=== PATIENT | male | born 1955 | race Caucasian/White ===

== ENCOUNTER 2017-08-30 17:18 | Observation (INO) | payer OTHER ==
[2017-08-30 18:36] LABS: ALT 158 U/L (21-72); AST 231 U/L (17-59); Albumin 3.1 g/dL (3.5-5.0); Alkaline Phosphatase 154 U/L (38-126); Anion Gap 8 mmol/L; Blood Urea Nitrogen 13 mg/dL (9-20); Calcium 8.5 mg/dL (8.4-10.2); Carbon Dioxide 25 mmol/L (22-30); Chloride 107 mmol/L (98-107); Glucose 108 mg/dL (74-99); Magnesium 1.6 mg/dL (1.6-2.3); Potassium 4.1 mmol/L (3.5-5.1); Sodium 140 mmol/L (137-145); Total Bilirubin 1.6 mg/dL (0.2-1.3); Total Protein 6.7 g/dL (6.3-8.2)
[2017-08-30 18:44] LABS: Basophils % (A) 1 %; Eosinophils # (A) 0.1 k/uL (0-0.7); Eosinophils % (A) 3 %; HCT 36.6 % (39.0-53.0); HGB 11.9 gm/dL (13.0-17.5); Lymphocytes # (A) 1.1 k/uL (1.0-4.8); Lymphocytes % (A) 31 %; MCH 28.5 pg (25.0-35.0); MCHC 32.4 g/dL (31.0-37.0); Mean Platelet Volume 9.4; Monocytes # (A) 0.2 k/uL (0-1.0); Monocytes % (A) 7 %; Neutrophils % (A) 57 %; RBC 4.16 m/uL (4.30-5.90); RDW 15.8 % (11.5-15.5); WBC 3.5 k/uL (3.8-10.6)
--- NOTE | 2017-08-30 18:44 | ED ---
Chest Pain HPI - General Chief Complaint: Chest Pain Stated Complaint: Chest pain Time Seen by Provider: 08/30/17 18:25 Source: patient, RN notes reviewed Mode of arrival: ambulatory - History of Present Illness Initial Comments: This is a 61-year-old male with a history of hypertension who presents with complaints of elevated blood pressure numbers especially diastolic also complains of chest pain. He states been having chest pain on and off for the past one half days. Currently does not have any pain. Nonspecific in nature. MD Complaint: chest pain, other - Related Data Home Medications Medication Instructions Recorded Confirmed ALPRAZolam [Xanax] 0.25 mg PO DAILY PRN 08/30/17 08/30/17 Aspirin [Adult Low Dose Aspirin EC] 81 mg PO DAILY PRN 08/30/17 08/30/17 Buprenorphine HCl/Naloxone HCl 0.1 film SL Q48H PRN 08/30/17 08/30/17 [Suboxone 8 mg-2 mg Sl Film] Lisinopril [Zestril] 10 mg PO DAILY 08/30/17 08/30/17 cloNIDine HCL [Catapres] 0.2 mg PO TID 08/30/17 08/30/17 Allergies Allergy/AdvReac Type Severity Reaction Status Date / Time No Known Allergies Allergy Verified 08/30/17 18:56 Review of Systems ROS Statement: Those systems with pertinent positive or pertinent negative responses have been documented in the HPI. ROS Other: All systems not noted in ROS Statement are negative. Past Medical History Past Medical History: Hypertension Additional Past Medical History / Comment(s): irreg heart beat hep c History of Any Multi-Drug Resistant Organisms: None Reported Past Surgical History: Hernia Repair Past Psychological History: No Psychological Hx Reported Smoking Status: Current every day smoker Past Alcohol Use History: Daily Past Drug Use History: None Reported General Exam - General Exam Comments Initial Comments: This a well-developed well-nourished awake alert oriented 3 male General appearance: alert, anxious Head exam: Present: atraumatic, normocephalic, normal inspection Eye exam: Present: normal appearance, PERRL, EOMI. Absent: scleral icterus, conjunctival injection, periorbital swelling ENT exam: Present: normal exam, mucous membranes moist Neck exam: Present: normal inspection. Absent: tenderness, meningismus, lymphadenopathy Respiratory exam: Present: normal lung sounds bilaterally. Absent: respiratory distress, wheezes, rales, rhonchi, stridor Cardiovascular Exam: Present: regular rate, normal rhythm, normal heart sounds. Absent: systolic murmur, diastolic murmur, rubs, gallop, clicks GI/Abdominal exam: Present: soft, normal bowel sounds. Absent: distended, tenderness, guarding, rebound, rigid Extremities exam: Present: normal inspection, full ROM, normal capillary refill. Absent: tenderness, pedal edema, joint swelling, calf tenderness Back exam: Present: normal inspection Neurological exam: Present: alert, oriented X3, CN II-XII intact Psychiatric exam: Present: normal affect, normal mood Skin exam: Present: warm, dry, intact, normal color. Absent: rash Course Vital Signs 08/30/17 08/30/17 08/30/17 17:30 18:43 19:19 Temperature 98.7 F Pulse Rate 69 79 60 Respiratory 18 16 18 Rate Blood Pressure 135/81 158/77 147/83 O2 Sat by Pulse 98 96 99 Oximetry Chest Pain MDM - MDM I did review the imaging no acute findings. Patient has no pain at this time he will be admitted I did discuss case with him and with Dr. Gonzalez. Disposition Clinical Impression: Chest pain, Hypertension Disposition: ADMITTED IP TO THIS HOSP Condition: Stable Referrals: Gabriel Thibodeaux MD [Primary Care Provider] - 1-2 days
[2017-08-30 18:46] LABS: Platelet Count 80 k/uL (150-450)
[2017-08-30 18:47] LABS: Creatine Kinase 63 U/L (55-170)
[2017-08-30 18:51] LABS: INR 1.5 (<1.2); Partial Thromboplastin Time 28.6 sec (22.0-30.0); Prothrombin Time 13.9 sec (9.0-12.0)
[2017-08-30 18:59] LABS: Troponin I <0.012 ng/mL (0.000-0.034)
[2017-08-30 19:01] LABS: Creatine Kinase MB 2.5 ng/mL (0.0-2.4)
--- NOTE | 2017-08-30 19:34 | XR ---
EXAMINATION TYPE: XR chest 2V DATE OF EXAM: 08/30/2017 COMPARISON: NONE HISTORY: Chest pain TECHNIQUE: Frontal and lateral views of the chest are obtained. FINDINGS: Heart and mediastinum are normal. Lungs are clear. Diaphragm is normal. Bony thorax is int act. There are chest leads. IMPRESSION: Normal chest
[2017-08-30] MEDS ORDERED: HEPARIN SODIUM,PORCINE 5,000 UNIT/ML 1 ML VIAL IV ONE (20:33)
[2017-08-30] MEDS ORDERED: NITROGLYCERIN SL TABS 0.4 MG TAB SUBLINGUAL PRN (20:33)
[2017-08-30] MEDS ORDERED: BUPRENORPHINE HCL SL PRN (20:35)
[2017-08-30] MEDS ORDERED: NALOXONE HCL SL PRN (20:35)
[2017-08-30] MEDS ORDERED: ALPRAZolam 0.25 MG TAB PO PRN (20:35)
[2017-08-30] MEDS ORDERED: HEPARIN SOD,PORK IN 0.45% NACL 25,000 UNIT in 0.45% NACL 1 500ML.BAG IV SCH (20:45)
[2017-08-30] MEDS ORDERED: SODIUM CHLORIDE 0.9% 1,000 ML IV SCH (20:45)
--- NOTE | 2017-08-30 22:39 | HP ---
HISTORY AND PHYSICAL DATE OF ADMISSION: 08/30/2017 PRESENTING COMPLAINT: Chest pain. HISTORY OF PRESENTING COMPLAINT: Pleasant 61-year-old patient off Dr. Thibodeaux. Chronic stable medical conditions include hypertension, hepatitis C that was treated over 15 years ago, treated with interferon and patient levels have been undetectable. The patient then was taking methadone and subsequently switched over to Suboxone and is taking 1 mg every other day. The patient noticed for a day he has been having episodes of chest pounding in the middle of the chest going over to the precordial on the left side. Also he noticed some nausea today and the pain would go down to the left arm. The patient also felt a bit dizzy. Because of the combination of the symptoms, concerned about the heart, the patient decided to present to the ER. The patient had a stress test over 15 years ago. No other cardiac history. The patient is cutting back on the smoking. REVIEW OF SYSTEMS: CONSTITUTIONAL: None. HEENT none. RESPIRATORY: Minimal short of breath. CARDIOVASCULAR: As above. GASTROINTESTINAL: None. GENITOURINARY: None. MUSCULOSKELETAL: None. DERMATOLOGICAL: None. HEMATOLOGIC: None. LYMPHATIC: None. PSYCHIATRY: None. NEUROLOGICAL: None. PAST HISTORY: Hypertension, irregular heartbeat, hepatitis C, treated. SURGICAL HISTORY: Hernia repair. SOCIAL HISTORY: The patient has smoking for several years, now down to 1 pack a week. The patient did drink alcohol, used to work as an environmental lawyer. Lives with his younger sister. FAMILY HISTORY: Reviewed, noncontributory to presentation. HOME MEDICATIONS: 1. Xanax 0.25 p.o. daily p.r.n. 2. Catapres 0.2 p.o. t.i.d. 3. Zestril 10 mg p.o. daily. 4. Suboxone 8/2.1 mg p.o. q.48 hours p.r.n. 5. Aspirin 81 mg p.o. daily p.r.n. ALLERGIES: None. EXAMINATION: Temperature 98.7, pulse 69, respiration 18, blood pressure 142/78, pulse ox 98% on 2 L and 98% on room air. GENERAL APPEARANCE: Average built, sitting up, comfortable. EYES: Pupil equal. Conjunctivae normal. HEENT: External appearance of nose, ears normal. Oral cavity normal. NECK: JVD not raised. Mass not palpable. RESPIRATORY: Effort normal. LUNGS: Slightly decreased breath sounds. CARDIOVASCULAR: First and second sounds normal. No edema. ABDOMEN: Soft, nontender. Liver and spleen not palpable. LYMPHATIC: No lymph node palpable in neck or axillae. PSYCHIATRY: Alert and oriented x3. Mood and affect normal. NEUROLOGICAL: Pupils appear grossly intact. Power and sensation grossly intact. INVESTIGATIONS: White count 3.5, hemoglobin 11.9, platelets 80. Potassium 4.1. AST 231, ALT 158. Troponins less than 0.012. EKG shows looks like a wandering atrial pacemaker with some PACs. ASSESSMENT: 1. Anterior chest wall in a patient whose risk factors includes age and smoking. 2. Chronic nicotine dependence. Patient is an active cigarette smoker. 3. Pancytopenia; chronic, cause unknown. Will need further workup as an outpatient. Will send off basic lab work for right now. 4. Hepatitis with a prior history of hepatitis C that was treated and stated that hepatitis C was undetectable. PLAN: Patient's home medications are resumed. Patient is put on aspirin, IV heparin. Cardiology was consulted. The patient will need a stress test. Will also give patient a nicotine patch. MMODL / IJN: [id number] /
[2017-08-30] MEDS: cloNIDine HCL 0.2 MG TAB PO SCH (22:48)
[2017-08-30] MEDS: NICOTINE 7MG/24HR PATCH TRANSDERM SCH (22:49)
[2017-08-31 01:09] LABS: Creatine Kinase 43 U/L (55-170)
[2017-08-31 01:23] LABS: Creatine Kinase MB 1.9 ng/mL (0.0-2.4); Troponin I <0.012 ng/mL (0.000-0.034)
[2017-08-31 03:55] LABS: Cholesterol 154 mg/dL (<200); HDL Cholesterol 52 mg/dL (40-60); LDL Cholesterol,Calculated 91 mg/dL (0-99); Triglycerides 54 mg/dL (<150)
[2017-08-31 06:24] LABS: Creatine Kinase 41 U/L (55-170)
[2017-08-31 06:37] LABS: Creatine Kinase MB 1.8 ng/mL (0.0-2.4); Troponin I <0.012 ng/mL (0.000-0.034)
[2017-08-31] MEDS: cloNIDine HCL 0.2 MG TAB PO SCH (08:53)
[2017-08-31] MEDS ORDERED: LISINOPRIL 10 MG TAB PO SCH (09:00)
[2017-08-31] MEDS ORDERED: ASPIRIN 325 MG TAB PO SCH (09:00)
[2017-08-31] MEDS: NICOTINE 7MG/24HR PATCH TRANSDERM SCH (09:40)
--- NOTE | 2017-08-31 11:44 | ECHOF ---
Referral Reason:cp MEASUREMENTS -------- HEIGHT: 170.2 cm WEIGHT: 80.3 kg BP: 134/68 RVIDd: 3.6 cm (< 3.3) IVSd: 0.8 cm (0.6 - 1.1) LVIDd: 4.6 cm (3.9 - 5.3) LVPWd: 0.9 cm (0.6 - 1.1) IVSs: 1.2 cm LVIDs: 3.3 cm LVPWs: 1.2 cm LAESV Index (A-L): 29.78 ml/m Ao Diam: 3.3 cm (2.0 - 3.7) AV Cusp: 1.7 cm (1.5 - 2.6) LA Diam: 3.0 cm (2.7 - 3.8) MV E Jean Claude: 1.09 m/s MV DecT: 248 ms MV A Jean Claude: 0.70 m/s MV E/A Ratio: 1.57 RAP: 5.00 mmHg RVSP: 19.63 mmHg MV EF SLOPE: 106.05 mm/s (70 - 150) MV EXCURSION: 1.67 cm (> 18.000) FINDINGS -------- Sinus rhythm with extra systolic beats. This was a technically good study. The left ventricular size is normal. Left ventricular wall thickness is normal. Overall left vent ricular systolic function is normal with, an EF between 55 - 60 %. The right ventricle is mildly enlarged. LA is midly dilated 29-33ml/m2. The right atrium is normal in size. The aortic valve is trileaflet, and appears structurally normal. No aortic stenosis or regurgitation. Mild mitral annular calcification present. There is trace to mild mitral regurgitation. Trace tricuspid regurgitation present. Right ventricular systolic pressure is normal at < 35 mmHg. There is no evidence of pulmonary hypertension. The pulmonic valve was not well visualized. The aortic root size is normal. IVC Not well visulized. There is no pericardial effusion. CONCLUSIONS -------- 1. Sinus rhythm with extra systolic beats. 2. This was a technically good study. 3. The left ventricular size is normal. 4. Left ventricular wall thickness is normal. 5. Overall left ventricular systolic function is normal with, an EF between 55 - 60 %. 6. The right ventricle is mildly enlarged. 7. LA is midly dilated 29-33ml/m2. 8. The aortic valve is trileaflet, and appears structurally normal. No aortic stenosis or regurgitati on. 9. Mild mitral annular calcification present. 10. There is trace to mild mitral regurgitation. 11. Trace tricuspid regurgitation present. 12. Right ventricular systolic pressure is normal at < 35 mmHg. 13. There is no evidence of pulmonary hypertension. 14. The pulmonic valve was not well visualized. 15. The aortic root size is normal. 16. IVC Not well visulized. 17. There is no pericardial effusion. FILM INSPECTOR: Sourav Guan RDCS
[2017-08-31 12:01] VITALS: TEMP 97.6
--- NOTE | 2017-08-31 12:15 | P.CRDCN ---
History of Present Illness Consult date: 08/31/17 Consult reason: chest pain History of present illness: Mr. Sanchez is a pleasant 61-year old male past medical history significant for cocaine abuse, hypertension, hepatitis C, cirrhosis, irregular heart beat diagnosed per Dr. Thibodeaux and chronic tobacco use. He denies history of coronary artery disease and has never seen a business support manager for any reason. We have been asked to see him in consultation for complaints of chest pain and shortness of breath. He states for the previous week he has noticed increasing shortness of breath with minimal activity as well as significant swelling in his legs. He states when he pressed down on his legs the indentation from his finger stayed there for a few seconds. He has medications at home from his mother who recently and he took a few doses of lasix and aldactone. He noticed improvement of his swelling and mild improvement in his breathing. However starting 2 days ago he was having tightness in his chest that radiated into his shoulder and left arm. This was not related to activity. He did notice worsening pain in the left arm when he was folding towels yesterday. At the time of my exam he is chest pain free but the pain is reproducible on palpation under the left breast and denies shortness of breath. He also states he has chronic nausea that is not worse lately, but consistently there. His stools have been dark as well. He denies bright red blood or coffee ground appearance but the color is black. Urine noted in the urinal at the bedside is dark kaitlin in color. EKG on arrival reveals sinus mechanism with frequent PAC's with no acute ST or T -wave abnormalities. Chest xray is negative for an acute cardiopulmonary process. Laboratory data reviewed, WBC 3.5, hemoglobin 11.9, platelets 80, INR 1.5, potassium 4.1, magnesium 1.6, creatinine 0.69, AST 231, PLT 158, total bilirubin 1.6, alkaline phosphate 154, cardiac enzymes negative 3, proBNP 281, LDL 91. Current cardiac medications include Catapres 0.2 mg 3 times a day, lisinopril 10 mg daily and aspirin 81 mg daily. He also takes Suboxone since stopping cocaine. Review of Systems At this time my exam: CONSTITUTIONAL: Denies fever. Denies chills. EYES: Denies blurred vision. Denies vision changes. Denies eye pain. EARS, NOSE, MOUTH & THROAT: Denies headache. Denies sore throat. Denies ear pain. CARDIOVASCULAR: Denies chest pain. Denies shortness of breath. Denies orthopnea. Denies PND. Denies palpitations. RESPIRATORY: Denies cough. GASTROINTESTINAL: Denies abdominal pain. Denies diarrhea. Denies constipation. Chronic nausea. Denies vomiting. MUSCULOSKELETAL: Denies myalgias. INTEGUMENTARY: Denies pruitis. Denies rash. NEUROLOGIC: Denies numbness. Denies tingling. Denies weakness. PSYCHIATRIC: Denies anxiety. Denies depression. ENDOCRINE: Denies fatigue. Denies weight change. Denies polydipsia. Denies polyurina. GENITOURINARY: Denies burning, hematuria or urgency with micturation. HEMATOLOGIC: Denies history of anemia. Denies bleeding. Past Medical History Past Medical History: Hypertension Additional Past Medical History / Comment(s): irreg heart beat hep c History of Any Multi-Drug Resistant Organisms: None Reported Past Surgical History: Hernia Repair Past Psychological History: No Psychological Hx Reported Smoking Status: Current every day smoker Past Alcohol Use History: Daily Past Drug Use History: None Reported Medications and Allergies Home Medications Medication Instructions Recorded Confirmed Type ALPRAZolam [Xanax] 0.25 mg PO DAILY PRN 08/30/17 08/30/17 History Aspirin [Adult Low Dose Aspirin EC] 81 mg PO DAILY PRN 08/30/17 08/30/17 History Buprenorphine HCl/Naloxone HCl 0.1 film SL Q48H PRN 08/30/17 08/30/17 History [Suboxone 8 mg-2 mg Sl Film] Lisinopril [Zestril] 10 mg PO DAILY 08/30/17 08/30/17 History cloNIDine HCL [Catapres] 0.2 mg PO TID 08/30/17 08/30/17 History Allergies Allergy/AdvReac Type Severity Reaction Status Date / Time No Known Allergies Allergy Verified 08/30/17 18:56 Physical Exam Vitals: Vital Signs Temp Pulse Resp BP Pulse Ox 08/31/17 06:31 56 L 18 133/63 97 08/31/17 05:20 54 L 18 137/67 99 08/31/17 04:45 58 L 18 138/67 98 08/31/17 04:00 55 L 18 146/60 98 08/31/17 02:44 51 L 18 149/73 99 08/31/17 01:42 52 L 18 142/70 99 08/30/17 23:37 98.2 F 53 L 18 143/71 98 08/30/17 21:20 64 18 142/78 98 08/30/17 19:19 60 18 147/83 99 08/30/17 18:43 79 16 158/77 96 08/30/17 17:30 98.7 F 69 18 135/81 98 Intake and Output 08/30/17 08/31/17 08/31/17 22:59 06:59 14:59 Intake Total 129.363 Balance 129.363 Intake: Intake, IV Titration 129.363 Amount Heparin Sod,Pork in 0.45% 129.363 NaCl 25,000 unit In 0.45 % NaCl 1 500ml.bag @ 12 UNITS/KG/HR 19.26 mls/hr IV .Q24H [facility] Rx#: [id number] Other: Weight 80.286 kg Blood pressure 133/63 heart rate 56 afebrile maintaining oxygen saturation on 2 L nasal cannula GENERAL: This is a 61-year-old male in no apparent distress at the time of my examination. HEENT: Head is atraumatic, normocephalic. Pupils are equal, round. Sclerae anicteric. Conjunctivae are clear. Mucous membranes of the mouth are moist. Neck is supple. There is no jugular venous distention. No carotid bruit is heard. LUNGS: Clear to auscultation no wheezes, rales or rhonchi. No chest wall tenderness is noted on palpation or with deep breathing. Diminished bilaterally. HEART: Regular rate and rhythm without murmurs, rubs or gallops. S1 and S2 heard. ABDOMEN: Soft, nontender. Bowel sounds are heard. No organomegaly noted. EXTREMITIES: No evidence of peripheral edema and no calf tenderness noted. VASCULAR: Radial and dorsalis pedis pulses palpated, no evidence of clubbing. NEUROLOGIC: Patient is awake, alert and oriented x3. Results 08/30/17 18:07 08/30/17 18:07 Cardiac Enzymes 08/30/17 08/30/17 08/31/17 Range/Units 18:07 18:07 00:22 AST 231 H (17-59) U/L CK-MB (CK-2) 2.5 H* 1.9 (0.0-2.4) ng/mL Troponin I <0.012 <0.012 (0.000-0.034) ng/mL 08/31/17 Range/Units 05:41 AST (17-59) U/L CK-MB (CK-2) 1.8 (0.0-2.4) ng/mL Troponin I <0.012 (0.000-0.034) ng/mL Coagulation 08/30/17 08/31/17 Range/Units 18:07 03:13 PT 13.9 H (9.0-12.0) sec APTT 28.6 127.9 H* (22.0-30.0) sec Lipids 08/31/17 Range/Units 03:13 Triglycerides 54 (<150) mg/dL Cholesterol 154 (<200) mg/dL HDL Cholesterol 52 (40-60) mg/dL CBC 08/30/17 Range/Units 18:07 WBC 3.5 L (3.8-10.6) k/uL RBC 4.16 L (4.30-5.90) m/uL Hgb 11.9 L (13.0-17.5) gm/dL Hct 36.6 L (39.0-53.0) % Plt Count 80 L (150-450) k/uL Comprehensive Metabolic Panel 08/30/17 Range/Units 18:07 Sodium 140 (137-145) mmol/L Potassium 4.1 (3.5-5.1) mmol/L Chloride 107 (98-107) mmol/L Carbon Dioxide 25 (22-30) mmol/L BUN 13 (9-20) mg/dL Creatinine 0.69 (0.66-1.25) mg/dL Glucose 108 H (74-99) mg/dL Calcium 8.5 (8.4-10.2) mg/dL AST 231 H (17-59) U/L ALT 158 H (21-72) U/L Alkaline Phosphatase 154 H (38-126) U/L Total Protein 6.7 (6.3-8.2) g/dL Albumin 3.1 L (3.5-5.0) g/dL Current Medications Generic Name Dose Route Start Last Admin Trade Name Freq PRN Reason Stop Dose Admin Alprazolam 0.25 mg 08/30/17 20:35 Xanax PO DAILY PRN Anxiety Aspirin 325 mg 08/31/17 09:00 08/31/17 09:40 Aspirin PO 325 mg DAILY JOSH Administration Clonidine 0.2 mg 08/30/17 22:00 08/31/17 08:53 Catapres PO Not Given TID JOSH Heparin Sodium/Sodium Chloride 500 mls @ 19.26 mls/hr 08/30/17 20:45 05:17 25,000 unit/ Sodium Chloride IV 9 units/kg/hr .Q24H JOSH 14.45 mls/hr Protocol Titration 12 UNITS/KG/HR Sodium Chloride 1,000 mls @ 20 mls/hr 08/30/17 20:45 08/30/17 22:48 Saline 0.9% IV 20 mls/hr .Q24H JOSH Administration Lisinopril 10 mg 08/31/17 09:00 08/31/17 08:52 Zestril PO Not Given DAILY [facility] Nicotine 1 patch 08/30/17 22:15 08/31/17 09:40 Habitrol 7mg/24hr Patch TRANSDERM Not Given DAILY [facility] Nitroglycerin 0.4 mg 08/30/17 20:33 Nitrostat SUBLINGUAL Q5M PRN Chest Pain Buprenorphine Hcl/ 0.1 film 08/30/17 20:35 Naloxone Hcl [ SL Suboxone 8 Mg-2 Mg Q48H PRN Sl Film] 0.1 Film WITHDRAWAL Intake and Output 08/30/17 08/31/17 08/31/17 22:59 06:59 14:59 Intake Total 129.363 Balance 129.363 Intake: Intake, IV Titration 129.363 Amount Heparin Sod,Pork in 0.45% 129.363 NaCl 25,000 unit In 0.45 % NaCl 1 500ml.bag @ 12 UNITS/KG/HR 19.26 mls/hr IV .Q24H [facility] Rx#: [id number] Other: Weight 80.286 kg 08/30/17 18:07 08/30/17 18:07 Assessment and Plan Assessment: ASSESSMENT 1. Chest pain at rest with shortness of breath and b/l lower extremity edema at home relieved with lasix and aldactone 2. Hypertension 3. Chronic liver disease, hepatitis C 4. Pancytopenia 5. Chronic tobacco use 6. Prior history of cocaine use 7. Chronic alcohol use, daily PLAN Obtain 2D echocardiogram and doppler study. Check stool for occult blood. Discontinue heparin and aspirin. Recommend evaluation by GI specialist. Cardiac work-up to be done as an outpatient in the office. Alcohol and tobacco cessation discussed. Nurse Practitioner note has been reviewed, I agree with a documented findings and plan of care. Patient was seen and examined.
[2017-08-31 13:42] VITALS: BP 150/78; PULSE 60; RESP 18
--- NOTE | 2017-08-31 23:53 | DS ---
DISCHARGE SUMMARY DATE OF ADMISSION: 08/30/2017. DATE OF DISCHARGE: 08/31/2017. FINAL DIAGNOSES: 1. Anterior chest wall pain, somewhat atypical. 2. Chronic nicotine dependence, patient is an active cigarette smoker. 3. Pancytopenia, for further workup as an outpatient. 4. Hepatitis with a prior history of hepatitis C, was treated as an outpatient. HOSPITAL COURSE: This patient presented with chest pain. Was recommended stress test by Cardiology, but did not want to do that. The patient does have some pancytopenia and was told he was treated for hepatitis C in the past. I did tell him to follow up with his family doctor and follow up with Hematology and GI as an outpatient. On examination, lungs are clear. Cardiovascular 1st and 2nd sounds normal. The patient's troponins were negative. 2D echocardiogram was unremarkable. Patient's AST is 231, ALT 158. DISCHARGE MEDICATIONS: 1. Xanax 0.25 p.o. daily p.r.n. 2. Aspirin 81 mg p.o. daily. 3. Suboxone 8/2 every 48 hours p.r.n. 4. Zestril 10 mg p.o. daily. 5. Catapres 0.2 mg p.o. t.i.d. 6. Nicotine patch 7. 7. Nitrostat 0.4 sublingual every 5 p.r.n. FOLLOW UP: 1. Dr. Thibodeaux in [address] Cordoba in 2 weeks. LABS: CBC and CMP in 3 days with results to Dr. Gabriel Thibodeaux and follow up accordingly with GI and Hematology. Care was discussed with the patient. Questions were answered. EXAMINATION: Lungs slightly decreased breath sounds. Cardiovascular, 1st and 2nd sounds normal. CONSULTATION: Dr. Campbell from Cardiology. MMODL / IJN: [id number] /
[2017-09-01] MEDS ORDERED: ASPIRIN 81 MG PO SCH (09:00)
== END 2017-08-31 13:42 | disposition home or self-care (01) ==
LOC: EC 17:18 → 3OBS 20:33
PROVIDERS: ADMIT Hospitalist; ATTEND Hospitalist
DX: R07.89 Other chest pain (principal); I10 Essential (primary) hypertension; D61.818 Other pancytopenia; K74.60 Unspecified cirrhosis of liver; K73.9 Chronic hepatitis, unspecified; I49.9 Cardiac arrhythmia, unspecified; F17.210 Nicotine dependence, cigarettes, uncomplicated; Z86.19 Personal history of other infectious and parasitic diseases; F14.11 Cocaine abuse, in remission; Z72.89 Other problems related to lifestyle; Z79.82 Long term (current) use of aspirin; Z79.891 Long term (current) use of opiate analgesic; Z79.899 Other long term (current) drug therapy
CPT/HCPCS: 96366 ×16; 96376 ×2; 96365 ×2; 99285 ×2; 36415; 93005 ×2; 93306; 83880; 80061; 80053; 82550 ×2; 82553 ×2; 83735; 84484 ×2; 85025; 85610; 85730 ×2; 71046; G0378 ×2; J1644 ×2

== ENCOUNTER 2017-10-20 08:32 | Day surgery (SDC) | payer OTHER ==
[2017-10-19 09:06] VITALS: BMI 26.6
[~2017-10-20 08:32] MED LIST: LACTATED RINGERS 1,000 ML IV SCH
[2017-10-20 11:29] VITALS: RESP 16; TEMP 98.6
[2017-10-20] MEDS ORDERED: LIDOCAINE 1% 20 ML VIAL (10MG/ML) FOR IV START INTRADERMA ONE (11:40)
[2017-10-20] MEDS ORDERED: PROPOFOL 10 MG/ML 20 ML VIAL IV ONE (11:43)
[2017-10-20] MEDS ORDERED: MIDAZOLAM 2 MG/2 ML VIAL ONE (11:43)
--- NOTE | 2017-10-20 12:10 | P.PCN ---
Date of Procedure: 10/20/17 Procedure(s) Performed: Brief history: Patient is a pleasant 61-year-old white male, scheduled for an elective upper endoscopy as well as colonoscopy as a part of screening for esophageal varices because of liver cirrhosis related to chronic hepatitis C infection. He is also scheduled for a colonoscopy for screening for colon neoplasia. Procedure performed: Esophagogastroduodenoscopy with biopsy Colonoscopy Preoperative diagnosis: Cirrhosis of the liver/screening for esophageal varices Screening for colon cancer Anesthesia: MAC Procedure: After informed consent was obtained from the patient was brought into the endoscopy unit and IV sedation was administered by anesthesia under continuous monitoring. Initially upper endoscopy was done. The Olympus GF 160 video endoscope was inserted inserted into the mouth and esophagus intubated without any difficulty and was gradually advanced into the stomach and duodenum and carefully examined. The bulb and second part of the duodenum appeared normal. The scope was then withdrawn into the stomach adequately insufflated with air and upon careful examination the antrum and body had changes consistent with mild portal hypertensive gastropathy. The, cardia and fundus appeared normal. The scope was then withdrawn into the esophagus. The GE junction was located at 40 cm to the incisors. It appeared regular with no erythema erosions or ulcerations. Rest of the esophagus appeared normal. Patient tolerated the procedure well. At this time the patient continued to remain sedation. Initial digital rectal examination was normal. Olympus CF 160 video colonoscope was then inserted into the rectum and gradually advanced to the cecum without any difficulty. Careful examination was performed as the scope was gradually being withdrawn. The prep was excellent. The cecum, ascending colon, transverse colon, descending colon, sigmoid colon and rectum appeared normal. Retroflexion was performed in the rectum and no lesions were noted. Patient tolerated the procedure well. Impression: 1. Upper endoscopy revealed mild gastritis and portal gastropathy but no evidence of gastric or esophageal varices 2. Colonoscopy was essentially within normal limits with no evidence of colitis or colon neoplasia Recommendations: Findings of this examination were discussed with the patient as well as esophagus. He will follow with the biopsy results. He was advised to have a repeat upper endoscopy in 2 years and repeat colonoscopy in 10 years
[2017-10-20 12:40] VITALS: PULSE 75
[2017-10-20 12:41] VITALS: BP 149/87
== END 2017-10-20 12:55 | disposition home or self-care (01) ==
LOC: ORWHC2ENDO 08:32
PROVIDERS: ATTEND Internal Medicine Gastroenterology
DX: Z12.11 Encounter for screening for malignant neoplasm of colon (principal); K29.50 Unspecified chronic gastritis without bleeding; K31.9 Disease of stomach and duodenum, unspecified; K74.60 Unspecified cirrhosis of liver; B18.2 Chronic viral hepatitis C; I10 Essential (primary) hypertension; Z79.82 Long term (current) use of aspirin; Z79.899 Other long term (current) drug therapy; Z72.0 Tobacco use
CPT/HCPCS: 88305; 43239; J2250; J2704; G0121

== ENCOUNTER → 2017-10-20 | Outpatient (CLI) | payer OTHER ==
[2017-10-20 08:39] LABS: HCT 36.5 % (39.0-53.0); HGB 12.1 gm/dL (13.0-17.5); MCH 28.5 pg (25.0-35.0); MCHC 33.1 g/dL (31.0-37.0); Mean Platelet Volume 9.4; RBC 4.24 m/uL (4.30-5.90); RDW 15.2 % (11.5-15.5); WBC 3.8 k/uL (3.8-10.6)
[2017-10-20 08:44] LABS: INR 1.4 (<1.2); Prothrombin Time 12.9 sec (9.0-12.0)
[2017-10-20 08:51] LABS: Platelet Count 93 k/uL (150-450)
[2017-10-20 09:57] LABS: ALT 108 U/L (21-72); AST 146 U/L (17-59); Albumin 3.4 g/dL (3.5-5.0); Alkaline Phosphatase 117 U/L (38-126); Anion Gap 10 mmol/L; Blood Urea Nitrogen 16 mg/dL (9-20); Calcium 8.7 mg/dL (8.4-10.2); Carbon Dioxide 25 mmol/L (22-30); Chloride 108 mmol/L (98-107); Glucose 93 mg/dL (74-99); Potassium 4.5 mmol/L (3.5-5.1); Sodium 143 mmol/L (137-145); Total Bilirubin 1.9 mg/dL (0.2-1.3)
--- NOTE | 2017-10-20 14:52 | US ---
EXAMINATION TYPE: US portal vein DATE OF EXAM: 10/20/2017 COMPARISON: NONE CLINICAL HISTORY: K74.60 cirrhosis of liver. Known cirrhosis and hep c, no abd pain EXAM MEASUREMENTS: Liver Length: 15.4cm Gallbladder Wall: 0.2cm CBD: 0.3cm Right Kidney: 10.6 x 5.0 x 5.6cm ANATOMY: Pancreas: limited views only Liver: nodular and difficult to penetrate portions. Hepatic echotexture is diffusely coarsened witho ut hyperechogenicity. No focal identifiable masses are seen on today's examination. Color flow patency within the portal vein: yes, unable to assess LPV due to difficulty in penetra ting due to GB placement and nodular, small left lobe Portal Vein Flow: Hepatopetal Gallbladder: appears hydropic measuring 8.1cm in longitudinal dimension measuring 5.3 cm in transver se dimension Evidence for sonographic Odonnell's sign: NO CBD: 0.2cm Right Kidney: wnl Ascites noted? no IMPRESSION: 1. Cirrhotic morphology of the liver without focal mass on today's examination. Portal vein flow is m aintained and hepatopedal. 2. Enlarged gallbladder with no other sonographic findings of acute cholecystitis. HIDA scan could be performed if there is further clinical concern.
== END | disposition home or self-care (01) ==
LOC: RADUSWWP 07:47
PROVIDERS: ATTEND Internal Medicine Gastroenterology
DX: K74.60 Unspecified cirrhosis of liver (principal); K82.8 Other specified diseases of gallbladder
CPT/HCPCS: 36415; 80053; 82105; 85027; 85610; 93976